=== PATIENT | female | born 1955 | race Caucasian/White ===

== ENCOUNTER → 2017-11-09 11:12 | Outpatient (CLI) | payer OTHER, SELFPAY ==
[2017-11-09 12:12] LABS: Cholesterol 191 mg/dL (140-199); Glucose 99 mg/dL (80-110); HDL Cholesterol 60 mg/dL (40-60); LDL Cholesterol Calculated 110 mg/dL (<100); Triglycerides 103 mg/dL (35-150)
[2017-11-09 12:43] LABS: TSH w/ Reflex to FT4 1.46 uIU/mL (0.47-4.68)
== END ==
PROVIDERS: PCP Internal Medicine; Visit Provider Family Medicine
DX: M81.0 Age-related osteoporosis without current pathological fracture (principal); Z78.0 Asymptomatic menopausal state; R63.5 Abnormal weight gain; Z13.220 Encounter for screening for lipoid disorders; Z13.1 Encounter for screening for diabetes mellitus
CPT/HCPCS: 36415; 77080; 80061; 82947; 84443

== ENCOUNTER → 2018-01-18 16:53 | Outpatient (CLI) | payer OTHER, SELFPAY ==
[2018-01-18 18:12] LABS: Calcium 9.7 mg/dL (8.4-10.2)
[2018-01-18 18:29] LABS: Vitamin D 25 Hydroxy (D3) 68.9 ng/mL (30.0-100.0)
== END ==
PROVIDERS: Visit Provider Family Medicine
DX: M81.0 Age-related osteoporosis without current pathological fracture (principal)
CPT/HCPCS: 36415; 82306; 82310; 82330

== ENCOUNTER → 2019-02-12 07:52 | Outpatient (CLI) | payer OTHER, SELFPAY ==
--- NOTE | 2019-02-12 07:54 | DI.ECHO.S_ITS ---
[facility] +---------+ : : [address] : : [place] : : : : [id number] : : : : Phone: [phone]---------+ Echocardiogram Report + + :Name: FRANCIA SCHMITT Study Date: 02/12/2019 Height: 66 in : :[facility] Weight: 160 lb : : Gender: Female BSA: 1.8 m2 : :: 1955 Age: 63 yrs BP: 133/70 mmHg: :Reason For Study: TIA : : Performed By: Naseem Hall : :Referring: ANA LUISA REDDY : + + Interpretation Summary The left ventricle is normal in size, wall thickness, and systolic function without any focal wall motion abnormalities with the ejection fraction visually estimated to be 60-65%. Diastolic parameters suggest probable normal left ventricular diastolic function and normal filling pressures. The right ventricle is normal in size and function. Pulmonary artery pressures cannot be estimated because of the lack of a measurable TR jet velocity but the IVC suggests a CVP of around 3 mmHg. The left atrium is moderately dilated while right atrial size is normal. The interatrial septum is intact with no evidence for an atrial septal defect by Doppler or injection of contrast. There is no significant valvular heart disease. The ascending aorta is at the upper limits of normal in size. Procedure: A two-dimensional transthoracic echocardiogram with color flow and Doppler was performed. The study quality was technically good. There is no prior echocardiogram noted for this patient. A saline contrast injection was performed to assess for cardiac shunting. The patient was in normal sinus rhythm during the exam. Left Ventricle: The left ventricle is normal in size, wall thickness, and systolic function without any focal wall motion abnormalities. The ejection fraction is estimated to be 60-65%. Diastolic parameters suggest probable normal left ventricular diastolic function and normal filling pressures. Right Ventricle: The right ventricle is normal in size and function. Atria: The left atrium is moderately dilated. Right atrial size is normal. The interatrial septum is intact with no evidence for an atrial septal defect. There is no Doppler evidence for an atrial septal defect. Injection of contrast documented no interatrial shunt. Mitral Valve: The mitral valve is normal in structure and function. There is trace mitral regurgitation. Aortic Valve: The aortic valve is trileaflet. The aortic valve opens well. The aortic valve is slightly calcified. There is trace aortic regurgitation. Tricuspid Valve: The tricuspid valve is normal in structure and function. There is trace tricuspid regurgitation. Pulmonary artery pressures cannot be estimated because of the lack of a measurable TR jet velocity but the IVC suggests a CVP of around 3 mmHg. Pulmonic Valve: The pulmonic valve is normal in structure and function. There is trace pulmonic regurgitation. There is no significant valvular heart disease. Great Vessels: The aortic root is normal size. The ascending aorta is at the upper limits of normal in size. The pulmonary artery is normal size. The IVC is of normal diameter and collapses greater than 50% with a sniff. This suggests a low right atrial pressure of 3 mm Hg. Pericardium/ Pleura There is no pericardial effusion. There is no pleural effusion. MMode/2D Measurements & Calculations LVIDd: 4.3 cm LVOT diam: 2.1 cm LVIDs: 2.5 cm Ao root diam: 3.0 cm FS: 41.5 % Aortic Jxn: 2.5 cm EPSS: 0.14 cm asc Aorta Diam: 3.3 cm IVSd: 0.86 cm Ao Arch Diam (Prox Trans): 2.6 cm LVPWd: 0.85 cm LV estrada. diameter/BSA (cm/m^2): 2.4 LV sys. diameter/BSA (cm/m^2): 1.4 LA dimension: 3.5 cm RA long axis: 4.7 cm LA A2 area: 23.3 cm2 RA area: 17.2 cm2 LA A4 area: 22.0 cm2 RA vol: 53.0 ml LA length (vol): 5.4 cm RA : 29.1 ml/m2 LA vol: 80.8 ml IVC diam: 1.4 cm LA vol index: 44.4 ml/m2 RVD1 (basal): 3.6 cm RVD2 (mid): 3.3 cm Doppler Measurements & Calculations Ao V2 max: 165.1 cm/sec LVOT Max Zack: 126.2 cm/sec Ao V2 mean: 111.4 cm/sec LV V1 max P.4 mmHg Ao max P.9 mmHg LV V1 VTI: 28.5 cm Ao mean P.6 mmHg GUS(I,D): 2.8 cm2 Ao V2 VTI: 34.0 cm GUS(V,D): 2.5 cm2 sev ratio: 0.84 GUS indexed to BSA (cm^2/m^2): 1.5 MV E max zack: 83.4 cm/sec TR max zack: 228.7 cm/sec MV A max zack: 72.1 cm/sec TR max P.9 mmHg MV E/A: 1.2 PA V2 max: 99.4 cm/sec Med Peak E' Zack: 8.5 cm/sec PA V2 mean: 76.5 cm/sec E/E' med: 9.9 PA mean P.5 mmHg Lat Peak E' Zack: 12.2 cm/sec PA pr(Accel): 16.6 mmHg E/E' lat: 6.8 PA Accel Time: 0.16 sec E/e' average: 8.3 MV dec time: 0.18 sec SV(LVOT): 94.3 ml Reading Physician:PARVEEN
--- NOTE | 2019-02-12 07:54 | DI.MRI.S_ITS ---
PROCEDURE: MR STROKE Pre- and post-contrast brain MRI, non-contrast brain MR angiogram, pre- and postcontrast neck MR angiogram INDICATIONS: TIA symptoms TECHNIQUE: Brain: Noncontrast axial T1 spin echo, axial T2 fast spin echo, sagittal and axial FLAIR, coronal T2 fast spin echo, axial gradient echo, axial diffusion and ADC through the brain. After the administration of contrast, axial 3D VIBE of the cranial vasculature and brain. Brain MRA: Non-contrast 3-D time of flight MR angiogram, with multiple xwuajps-zlrfuarug-dxfqrerdcc (MIP) reformats performed. Neck MRA: Axial and sagittal TruFISP through the neck. Coronal dynamic MR angiogram during administration of contrast in the arterial and venous phases, with 3-dimenstional yyxfwnf-ppsecyuwz-iamqixvjqi (MIP) reformats constructed from subtraction images. COMPARISON: [facility], CT, CT HEAD TPA, 01/21/2019, 7:42. [facility], CT, HEAD AND NECK ANGIO, 08/26/2016, 10:22. FINDINGS: Image quality: Excellent. BRAIN: CSF spaces: Ventricles are normal in size and shape. Basal cisterns are patent. No extra-axial fluid collections. Brain: No intracranial bleeds or mass effects. Meng-white matter interface is normal. Diffusion weighted images show no acute ischemic insults. Brainstem appears normal. Normal intravascular flow voids are present. No abnormal intracranial enhancement. Skull and face: Calvarial marrow signal is normal. Orbits appear normal. Sinuses: Sinuses and mastoids are clear. BRAIN MR ANGIOGRAM: Anterior circulation: Intracranial internal carotid arteries are normal in size and enhancement. The flow within the paired anterior cerebral arteries is normal and symmetric. The flow within the middle cerebral arteries is normal and symmetric. The anterior communicating artery is seen. No stenoses, occlusions, or aneurysms. Posterior circulation: The visualized portions of the vertebral arteries demonstrate normal caliber, and join to form a normal appearing basilar artery. Near origin of the right posterior cerebral artery. The flow within the posterior cerebral arteries is normal and symmetric. No stenoses, occlusions, or aneurysms. NECK MR ANGIOGRAM: Carotids: Great vessels demonstrate a conventional anatomy as they arise from the aortic arch. The origins of the common carotid arteries appear patent. The calibers and courses of both common carotid arteries are normal. The bifurcation regions appear normal bilaterally. The internal carotid arteries demonstrate normal course and caliber. Posterior circulation: The origins of the vertebral arteries appear patent. More superior portions of both vertebral arteries demonstrate normal course and caliber, and join to form a normal appearing basilar artery. Miscellaneous: Subclavian arteries appear patent. Pre-contrast images through the neck show no soft tissue abnormalities. IMPRESSION: BRAIN MRI: Negative brain MRI. No recent infarct. BRAIN MR ANGIOGRAM: Negative cerebral MR angiography. NECK MR ANGIOGRAM: 1. No internal carotid artery stenosis bilaterally. 2. Patent bilateral vertebral arteries. Dictated by: Obinna Segal M.D. on 02/12/2019 at 10:31 Approved by: Obinna Segal M.D. on 02/12/2019 at 10:37
== END ==
PROVIDERS: PCP Family Medicine; Visit Provider Family Medicine
DX: G45.9 Transient cerebral ischemic attack, unspecified (principal); Q21.1 Atrial septal defect
CPT/HCPCS: 70548; 70553; 93306

== ENCOUNTER → 2019-04-05 13:33 | Outpatient (CLI) | payer OTHER, SELFPAY ==
--- NOTE | 2019-04-05 | DI.MG.S_ITS ---
BILATERAL DIGITAL SCREENING MAMMOGRAM 3D/2D WITH CAD: 04/05/2019 CLINICAL: Routine screening. Family history of breast cancer. Comparison is made to exams dated: 06/26/2017 mammogram - [facility] and 10/07/2012 mammogram - [facility]. There are scattered fibroglandular elements in both breasts. Current study was also evaluated with a Computer Aided Detection (CAD) system. There are benign calcifications in both breasts. There also are benign post operative findings in both breasts. No significant masses, calcifications, or other findings are seen in either breast. IMPRESSION: There is no mammographic evidence of malignancy. A 1 year screening mammogram is recommended. This exam was interpreted at Station ID: [id number]. NOTE: For mammograms, a report in lay terms will be sent to the patient. Approximately 15% of breast malignancies will not be visualized mammographically. In the management of a palpable breast mass, a negative mammogram must not discourage biopsy of a clinically suspicious lesion. Electronically Signed By: Preet rivera/chaim:04/07/2019 09:45:04 letter sent: Normal Exam ACR BI-RADS Category 2: Benign Finding(s) 3342F
== END ==
PROVIDERS: PCP Family Medicine; Visit Provider Family Medicine
DX: Z12.31 Encounter for screening mammogram for malignant neoplasm of breast (principal); Z80.3 Family history of malignant neoplasm of breast
CPT/HCPCS: 77063; 77067

== ENCOUNTER → 2019-06-26 07:36 | Outpatient (CLI) | payer OTHER, SELFPAY ==
--- NOTE | 2019-06-26 07:37 | DI.US.S_ITS ---
PROCEDURE: US RENAL COMPLETE INDICATIONS: RIGHT FLANK PAIN TECHNIQUE: Real-time scanning was performed of the kidneys and bladder, with image documentation. COMPARISON: [facility], CT, ANGIOGRAPHY ABDOMEN AND PELVIS, 02/05/2016, 19:40. FINDINGS: Kidneys: Kidneys are normal in size. Right kidney measures 11.3 cm long; left kidney measures 10.1 cm long. Right renal cortical thickness is 1.1 cm; left renal cortical thickness is 1.4 cm. Renal cortical echotexture is normal. No hydronephrosis or nephrolithiasis. No suspicious solid mass lesions. Bladder: Pre-void bladder volume is 261 mL. 0 cc postvoid residual. Pre-void images demonstrate no intraluminal masses or stones. On pre-void images, left ureteral jets are noted with color Doppler interrogation. (Of note, ureteral jets may not be detectable in up to 25% of cases due to insufficient differences in specific gravity between ureteral and bladder urine). Right ureteral jet not seen. Miscellaneous: No free pelvic fluid. IMPRESSION: 1. No hydronephrosis. 2. No postvoid residual. Consider CT KUB if occult kidney stone is suspected. Dictated by: Modesto Valderrama M.D. on 06/26/2019 at 11:14 Approved by: Modesto Valderrama M.D. on 06/26/2019 at 11:16
== END ==
PROVIDERS: PCP Family Medicine; Referring Provider Family Medicine; Visit Provider Family Medicine
DX: R10.9 Unspecified abdominal pain (principal)
CPT/HCPCS: 76770

== ENCOUNTER → 2019-08-12 13:37 | Outpatient (CLI) | payer OTHER, SELFPAY ==
[2019-08-14 06:14] LABS: COVID19 Sendout Not Detected (Not Detected)
== END ==
PROVIDERS: PCP Family Medicine; Visit Provider Registered Nurse
DX: Z11.9 Encounter for screening for infectious and parasitic diseases, unspecified (principal)
CPT/HCPCS: 87635

== ENCOUNTER → 2020-03-01 06:42 | Outpatient (CLI) | payer OTHER, SELFPAY ==
[2020-03-01 08:54] LABS: Add Manual Diff / Slide Review NO; Basophils Absolute Auto 0 /uL (0-100); Basophils Percent Auto 0.7 % (0-2); Eosinophils Absolute Auto 300 /uL (0-450); Eosinophils Percent Auto 6.1 % (2-4); Hematocrit 39.7 % (36-46); Hemoglobin 13.5 g/dL (12.0-16.0); Lymphocytes Absolute Auto 2100 /uL (1100-4500); Lymphocytes Percent Auto 38.8 % (25-40); Mean Corpuscular Hemoglobin 31.7 PG (26-34); Mean Corpuscular Volume 93.2 fL (80-100); Monocytes Absolute Auto 600 /uL (0-900); Neutrophils Absolute Auto 2300 /uL (1500-7000); Neutrophils Percent Auto 43.4 % (50-75); Platelet Count 252 X10^3/uL (150-400); Red Blood Cell Count 4.25 X10^6/uL (4.0-5.2); Red Cell Distribution Width 12.6 % (11.6-14.8); White Blood Cell Count 5.3 X10^3/uL (4.5-11.0)
[2020-03-01 09:19] LABS: Alanine Aminotransferase 20 IU/L (<35); Albumin 4.1 g/dL (3.5-5.0); Albumin Globulin Ratio 1.1 (1.0-2.8); Alkaline Phosphatase 84 U/L (38-126); Aspartate Aminotransferase 28 IU/L (14-36); BUN Creatinine Ratio 19.5 (6-22); Bilirubin Total 0.7 mg/dL (0.2-1.3); Blood Urea Nitrogen 16 mg/dL (7-17); Calcium 9.2 mg/dL (8.4-10.2); Carbon Dioxide 29 mmol/L (22-32); Chloride 105 mmol/L (98-107); Cholesterol 193 mg/dL (140-199); Estimated Glomerular Filt Rate > 60.0 mL/min (>60); Globulin 3.7 g/dL (1.7-4.1); Glucose 105 mg/dL (80-110); HDL Cholesterol 57 mg/dL (40-60); HEMOLYSIS < 15 (0-50); LDL Cholesterol Calculated 113 mg/dL (<100); Potassium 4.2 mmol/L (3.4-5.1); Sodium 138 mmol/L (137-145); Total Protein 7.8 g/dL (6.3-8.2); Triglycerides 116 mg/dL (35-150)
[2020-03-01 09:45] LABS: Creatinine Urine Random 12.3 mg/dL
[2020-03-01 09:55] LABS: Microalbumin Urine Random < 0.6 mg/dL (0-1.6)
[2020-03-01 10:15] LABS: TSH w/ Reflex to FT4 1.88 uIU/mL (0.47-4.68)
== END ==
PROVIDERS: PCP Family Medicine; Referring Provider Family Medicine; Visit Provider Family Medicine
DX: I10 Essential (primary) hypertension (principal)
CPT/HCPCS: 36415; 80053; 80061; 82043; 82570; 84443; 85025

== ENCOUNTER → 2021-04-01 16:18 | Outpatient (CLI) | payer OTHER, SELFPAY ==
--- NOTE | 2021-04-01 | DI.MG.S_ITS ---
BILATERAL DIGITAL SCREENING MAMMOGRAM 3D/2D WITH CAD: 04/01/2021 CLINICAL: Routine screening. Family history of breast cancer. Comparison is made to exams dated: 04/05/2019 mammogram, 06/26/2017 ultrasound, and 06/26/2017 mammogram - [facility]. There are scattered fibroglandular elements in both breasts. Current study was also evaluated with a Computer Aided Detection (CAD) system. There are benign calcifications in both breasts. There also are benign post operative findings in both breasts with persistent bilateral free silicone noted. No significant masses, calcifications, or other findings are seen in either breast. There has been no significant interval change. IMPRESSION: BENIGN There is no mammographic evidence of malignancy. Persistent free silicone noted in the bilateral breast. A 1 year screening mammogram is recommended. This exam was interpreted at Station ID: [id number]. NOTE: For mammograms, a report in lay terms will be sent to the patient. Approximately 15% of breast malignancies will not be visualized mammographically. In the management of a palpable breast mass, a negative mammogram must not discourage biopsy of a clinically suspicious lesion. Electronically Signed By: Preet Webb M.D. aty/:04/01/2021 16:44:01 letter sent: Normal Exam ACR BI-RADS Category 2: Benign Finding(s) 3342F
== END ==
PROVIDERS: PCP Family Medicine; Referring Provider Family Medicine; Visit Provider Family Medicine
DX: Z12.31 Encounter for screening mammogram for malignant neoplasm of breast (principal); Z80.3 Family history of malignant neoplasm of breast
CPT/HCPCS: 77063; 77067

== ENCOUNTER → 2021-08-27 07:59 | Outpatient (CLI) | payer OTHER, SELFPAY ==
[2021-08-27 09:22] LABS: Add Manual Diff / Slide Review NO; Basophils Absolute Auto 0 /uL (0-100); Basophils Percent Auto 0.1 % (0-2); Eosinophils Absolute Auto 300 /uL (0-450); Eosinophils Percent Auto 2.7 % (2-4); Hematocrit 38.1 % (36-46); Hemoglobin 13.1 g/dL (12.0-16.0); Lymphocytes Absolute Auto 1900 /uL (1100-4500); Lymphocytes Percent Auto 20.8 % (25-40); Mean Corpuscular HGB Conc 34.5 % (30-36); Mean Corpuscular Hemoglobin 31.5 PG (26-34); Mean Corpuscular Volume 91.2 fL (80-100); Monocytes Absolute Auto 800 /uL (0-900); Monocytes Percent Auto 8.2 % (3-14); Neutrophils Absolute Auto 6300 /uL (1500-7000); Neutrophils Percent Auto 68.2 % (50-75); Platelet Count 219 X10^3/uL (150-400); Red Blood Cell Count 4.17 X10^6/uL (4.0-5.2); Red Cell Distribution Width 12.6 % (11.6-14.8); White Blood Cell Count 9.3 X10^3/uL (4.5-11.0)
[2021-08-27 09:45] LABS: Alanine Aminotransferase 20 IU/L (<35); Albumin 3.9 g/dL (3.5-5.0); Albumin Globulin Ratio 1.3 (1.0-2.8); Alkaline Phosphatase 67 U/L (38-126); Aspartate Aminotransferase 26 IU/L (14-36); Bilirubin Total 0.7 mg/dL (0.2-1.3); Blood Urea Nitrogen 16 mg/dL (7-17); Carbon Dioxide 26 mmol/L (22-32); Chloride 106 mmol/L (98-107); Cholesterol 172 mg/dL (140-199); Estimated Glomerular Filt Rate > 60 mL/min (>60); Globulin 3.1 g/dL (1.7-4.1); Glucose 95 mg/dL (80-110); HDL Cholesterol 55 mg/dL (40-60); HEMOLYSIS < 15 (0-50); LDL Cholesterol Calculated 92 mg/dL (<100); Potassium 4.5 mmol/L (3.4-5.1); Sodium 139 mmol/L (137-145); Triglycerides 127 mg/dL (35-150)
[2021-08-27 09:46] LABS: Creatinine Urine Random 56.7 mg/dL
[2021-08-27 09:50] LABS: Microalbumin Urine Random < 0.6 mg/dL (0-1.6)
[2021-08-27 10:14] LABS: TSH w/ Reflex to FT4 1.13 uIU/mL (0.47-4.68)
== END ==
PROVIDERS: PCP Family Medicine; Referring Provider Family Medicine; Visit Provider Family Medicine
DX: I10 Essential (primary) hypertension (principal); F32.9 Major depressive disorder, single episode, unspecified
CPT/HCPCS: 36415; 80053; 80061; 82043; 82570; 84443; 85025

== ENCOUNTER → 2022-02-22 07:52 | Outpatient (CLI) | payer OTHER, SELFPAY ==
--- NOTE | 2022-02-22 07:54 | DI.ECHO.S_ITS ---
[facility]---------+ [facility] +---------+ : : [address] : [place] : : : : [id number] : : : : Phone: [phone] : : [phone] +---------+ Echocardiogram Report + + :Name: FRANCIA SCHMITT Study Date: 02/22/2022 Height: 66 in : :[facility] ReadingLocation: Weight: 169 lb : : Gender: Female BSA: 1.9 m2 : :: 1955 Age: 66 yrs BP: 150/101 mmHg: :Reason For Study: CHEST PAIN : :Ordering Physician: BARRY, : :ANA LUISA Performed By: Olga Light : :Referring: ANA LUISA REDDY : + + Interpretation Summary The ejection fraction is estimated to be 50-55%. There is mild tricuspid regurgitation. There is trace aortic regurgitation. There is trace mitral regurgitation. There is no pericardial effusion. Procedure: A two-dimensional transthoracic echocardiogram with color flow and Doppler was performed. The study quality was technically adequate. Comparison is made with the echocardiogram of 02/12/2019. The patient was in sinus rhythm with heart rates between 62-73 bpm during the exam. Left Ventricle: The left ventricle is normal in size and wall thickness. The ejection fraction is estimated to be 50-55%. Left ventricular wall motion is normal. Right Ventricle: The right ventricle is normal in size and function. Atria: The left atrial size is normal. Right atrial size is normal. There is no Doppler evidence for an interatrial shunt. Mitral Valve: The mitral valve is normal in structure and function. There is trace mitral regurgitation. Aortic Valve: The aortic valve is trileaflet. The aortic valve opens well. There is no aortic valve stenosis. There is trace aortic regurgitation. Tricuspid Valve: The tricuspid valve is normal in structure and function. There is mild tricuspid regurgitation. The right ventricular systolic pressure is estimated to be at least 23 mmHg based on an estimated right atrial pressure of 3 mm Hg. Pulmonic Valve: The pulmonic valve leaflets are thin and pliable; valve motion is normal. There is mild pulmonic regurgitation. Great Vessels: The aortic root is normal size. The dimensions of the ascending aorta are normal. The IVC is of normal diameter and collapses greater than 50% with a sniff. This suggests a low right atrial pressure of 3 mm Hg. Pericardium/ Pleura There is no pericardial effusion. There is no pleural effusion. MMode/2D Measurements & Calculations LVIDd: 4.4 cm LVOT diam: 2.0 cm LVIDs: 3.2 cm Ao root diam: 3.3 cm FS: 27.9 % asc Aorta Diam: 3.2 cm EPSS: 0.76 cm Ao Arch Diam (Prox Trans): 3.0 cm IVSd: 0.84 cm LVPWd: 0.79 cm LV estrada. diameter/BSA (cm/m^2): 2.4 LV sys. diameter/BSA (cm/m^2): 1.7 LA A2 area: 18.6 cm2 RA long axis: 4.5 cm LA A4 area: 14.0 cm2 RA area: 14.5 cm2 LA length (vol): 4.4 cm RA vol: 39.9 ml LA vol: 49.7 ml RA : 21.4 ml/m2 LA vol index: 26.7 ml/m2 IVC diam: 0.95 cm RVD1 (basal): 3.1 cm RVD2 (mid): 3.0 cm TAPSE: 2.0 cm Doppler Measurements & Calculations Ao V2 max: 126.6 cm/sec LVOT Max Zack: 124.2 cm/sec Ao V2 mean: 91.1 cm/sec LV V1 max P.2 mmHg Ao max P.4 mmHg LV V1 VTI: 26.5 cm Ao mean P.6 mmHg GUS(I,D): 3.2 cm2 Ao V2 VTI: 26.0 cm GUS(V,D): 3.1 cm2 sev ratio: 1.0 GUS indexed to BSA (cm^2/m^2): 1.7 MV E max zack: 63.3 cm/sec TR max zack: 225.5 cm/sec MV A max zack: 89.7 cm/sec TR max P.3 mmHg MV E/A: 0.71 PA V2 max: 89.9 cm/sec Med Peak E' Zack: 6.4 cm/sec PA V2 mean: 58.9 cm/sec E/E' med: 9.9 PA mean P.6 mmHg Lat Peak E' Zack: 5.1 cm/sec PA pr(Accel): 29.3 mmHg E/E' lat: 12.3 E/e' average: 11.1 MV dec time: 0.25 sec SV(LVOT): 83.2 ml Reading Physician:12:27 PM
== END ==
PROVIDERS: PCP Family Medicine; Referring Provider Family Medicine; Visit Provider Family Medicine
DX: I07.1 Rheumatic tricuspid insufficiency (principal); R07.9 Chest pain, unspecified
CPT/HCPCS: 93306

== ENCOUNTER → 2022-04-03 07:37 | Outpatient (CLI) | payer OTHER, SELFPAY ==
--- NOTE | 2022-04-03 | DI.MG.S_ITS ---
BILATERAL DIGITAL SCREENING MAMMOGRAM 3D/2D WITH CAD: 04/03/2022 CLINICAL: Routine screening. Family history of breast cancer. Comparison is made to exams dated: 04/01/2021 mammogram, 04/05/2019 mammogram, 06/26/2017 mammogram - [facility], and 10/07/2012 mammogram - [facility]. There are scattered areas of fibroglandular density in both breasts (category b / 25%-50% glandular tissue). Current study was also evaluated with a Computer Aided Detection (CAD) system. There are benign post operative findings in both breasts. No significant masses, calcifications, or other findings are seen in either breast. There has been no significant interval change. IMPRESSION: BENIGN There is no mammographic evidence of malignancy. A 1 year screening mammogram is recommended. Based on the Tyrer Cuzick model (a risk assessment model) the patient's lifetime risk is 3.7% and her 10 year risk is 2.0%. According to the ACR, ACS, and NCCN guidelines, an annual breast MRI exam along with mammogram is recommended if the patient's lifetime risk is 20% or greater. This exam was interpreted at Station ID: [id number]. NOTE: For mammograms, a report in lay terms will be sent to the patient. Approximately 15% of breast malignancies will not be visualized mammographically. In the management of a palpable breast mass, a negative mammogram must not discourage biopsy of a clinically suspicious lesion. Electronically Signed By: Modesto sánchez/chaim:04/03/2022 09:07:20 letter sent: Normal Exam ACR BI-RADS Category 2: Benign Finding(s) 3342F
[2022-04-03 08:07] LABS: COVID19 -Nasal RAPID Negative (Negative)
--- NOTE | 2022-04-04 08:50 | DI.NM.S_ITS ---
DATE OF SERVICE: 04/03/2022 PROCEDURE: Exercise stress test. INDICATION: Chest discomfort. CARDIAC STRESS: The patient underwent exercise stress test under the supervision of an attending staff. The patient walked on Kervin protocol for 6 minutes and 01 seconds, achieved maximum heart rate of 152, which was 100 percent of target heart rate. Baseline blood pressure 145/70 mmHg. Peak blood pressure 178/85 mmHg. Achieved 7 METs of workload. JAZMIN is 0 percent. Baseline rhythm was sinus. During stress, no convincing ischemic changes seen, however the patient developed right bundle branch block, which persisted even 5 minutes into the recovery. Rare PVCs. No chest pain or anginal symptoms. CONCLUSION: Exercise stress test is negative for inducible ischemia. However, the patient developed right bundle branch block during exercise, which persisted even 5 minutes in recovery. Likely rate related. Normal blood pressure response. Achieved 7 metabolic equivalents of workload and functional aerobic impairment 0 percent. Diminished exercise tolerance. No anginal symptoms. Rare premature ventricular contractions. Correlate clinically. Gilma Cardenas - KATHIE/leonides/bernard doc#: [id number]/job#: [id number] dd: 04/03/2022 16:54:00 dt: 04/03/2022 20:48:00 DICTATING /COPIES TO: Liza Cronin MD COPIES MNE: DIOGO;
== END ==
PROVIDERS: PCP Family Medicine; Referring Provider Family Medicine; Visit Provider Family Medicine
DX: R07.89 Other chest pain (principal); Z20.822 Contact with and (suspected) exposure to COVID-19; Z12.31 Encounter for screening mammogram for malignant neoplasm of breast; Z80.3 Family history of malignant neoplasm of breast
CPT/HCPCS: 77063; 77067; 87635; 93017

== ENCOUNTER → 2022-07-25 07:03 | Outpatient (CLI) | payer OTHER, SELFPAY ==
[2022-07-25 08:47] LABS: Alanine Aminotransferase 25 IU/L (<35); Albumin 4.1 g/dL (3.5-5.0); Albumin Globulin Ratio 1.1 (1.0-2.8); Alkaline Phosphatase 86 U/L (38-126); Aspartate Aminotransferase 32 IU/L (14-36); BUN Creatinine Ratio 22.2 (6-22); Bilirubin Total 0.5 mg/dL (0.2-1.3); Blood Urea Nitrogen 18 mg/dL (7-17); Calcium 8.9 mg/dL (8.4-10.2); Carbon Dioxide 24 mmol/L (22-32); Chloride 106 mmol/L (98-107); Cholesterol 213 mg/dL (140-199); Estimated Glomerular Filt Rate > 60 mL/min (>60); Globulin 3.7 g/dL (1.7-4.1); Glucose 97 mg/dL (80-110); HDL Cholesterol 61 mg/dL (40-60); HEMOLYSIS < 15 (0-50); LDL Cholesterol Calculated 120 mg/dL (<100); Potassium 4.4 mmol/L (3.4-5.1); Sodium 138 mmol/L (137-145); Total Protein 7.8 g/dL (6.3-8.2); Triglycerides 158 mg/dL (35-150)
[2022-07-25 09:20] LABS: Creatinine Urine Random 144.4 mg/dL
[2022-07-25 09:24] LABS: Microalbumi Creatinin Ratio Ur 7.6 ug/mg CR (<30); Microalbumin Urine Random 1.1 mg/dL (0-1.6)
== END ==
PROVIDERS: PCP Family Medicine; Referring Provider Family Medicine; Visit Provider Family Medicine
DX: I10 Essential (primary) hypertension (principal)
CPT/HCPCS: 36415; 80053; 80061; 82043; 82570

== ENCOUNTER → 2023-04-04 09:47 | Outpatient (CLI) | payer OTHER, SELFPAY ==
--- NOTE | 2023-04-04 | DI.MG.S_ITS ---
BILATERAL DIGITAL SCREENING MAMMOGRAM 3D/2D WITH CAD: 04/04/2023 CLINICAL: Routine screening. Family history of breast cancer. Comparison is made to exams dated: 04/03/2022 mammogram, 04/01/2021 mammogram, and 04/05/2019 mammogram - [facility]. There are scattered areas of fibroglandular density in both breasts (category b / 25%-50% glandular tissue). Current study was also evaluated with a Computer Aided Detection (CAD) system. There are benign post operative findings in both breasts. Silicone in the right breast. No significant masses, calcifications, or other findings are seen in either breast. There has been no significant interval change. IMPRESSION: BENIGN There is no mammographic evidence of malignancy. A 1 year screening mammogram is recommended. Based on the Tyrer Cuzick model (a risk assessment model) the patient's lifetime risk is 3.5% and her 10 year risk is 2.1%. According to the ACR, ACS, and NCCN guidelines, an annual breast MRI exam along with mammogram is recommended if the patient's lifetime risk is 20% or greater. This exam was interpreted at Station ID: [id number]. NOTE: For mammograms, a report in lay terms will be sent to the patient. Approximately 15% of breast malignancies will not be visualized mammographically. In the management of a palpable breast mass, a negative mammogram must not discourage biopsy of a clinically suspicious lesion. Electronically Signed By: Modesto Valderrama M.D. slc/:04/04/2023 16:08:26 letter sent: Normal Exam ACR BI-RADS Category 2: Benign Finding(s) 3342F
== END ==
PROVIDERS: PCP Family Medicine; Referring Provider Family Medicine; Visit Provider Family Medicine
DX: Z12.31 Encounter for screening mammogram for malignant neoplasm of breast (principal); Z80.3 Family history of malignant neoplasm of breast
CPT/HCPCS: 77063; 77067

== ENCOUNTER → 2023-07-24 07:03 | Outpatient (CLI) | payer OTHER, SELFPAY ==
[2023-07-24 08:18] LABS: Alanine Aminotransferase 17 IU/L (<35); Albumin 3.9 g/dL (3.5-5.0); Albumin Globulin Ratio 1.3 (1.0-2.8); Alkaline Phosphatase 62 U/L (38-126); Aspartate Aminotransferase 25 IU/L (14-36); Bilirubin Total 0.5 mg/dL (0.2-1.3); Blood Urea Nitrogen 17 mg/dL (7-17); Calcium 9.4 mg/dL (8.4-10.2); Carbon Dioxide 27 mmol/L (22-32); Chloride 108 mmol/L (98-107); Cholesterol 199 mg/dL (140-199); Estimated Glomerular Filt Rate > 60 mL/min (>60); Glucose 92 mg/dL (80-110); HDL Cholesterol 55 mg/dL (40-60); HEMOLYSIS < 15 (0-50); LDL Cholesterol Calculated 113 mg/dL (<100); Potassium 4.4 mmol/L (3.4-5.1); Sodium 140 mmol/L (137-145); Total Protein 6.9 g/dL (6.3-8.2); Triglycerides 153 mg/dL (35-150)
[2023-07-24 11:30] LABS: Creatinine Urine Random 46.6 mg/dL; Microalbumin Urine Random < 0.6 mg/dL (0-1.6)
== END ==
PROVIDERS: PCP Family Medicine; Referring Provider Family Medicine; Visit Provider Family Medicine
DX: I10 Essential (primary) hypertension (principal)
CPT/HCPCS: 36415; 80053; 80061; 82043; 82570

== ENCOUNTER → 2023-07-25 09:30 | Outpatient (CLI) | payer OTHER, SELFPAY ==
--- NOTE | 2023-07-25 10:00 | DI.RAD.S_ITS ---
Bone Density Report Name: FRANCIA SCHMITT Age: 68 Sex: Female Ethnicity: White Date of : 1955 Indication: osteopenia; Referring Provider: ANA LUISA REDDY Study: Bone densitometry was performed. Exam Date: July 25, 2023 Accession number: [id number] Bone Density: Region BMD T-score Z-score Classification AP Spine(L1-L4) 0.767 -2.5 -0.4 Osteoporosis Femoral Neck (Left) 0.515 -3.0 -1.2 Osteoporosis Total Hip (Left) 0.720 -1.8 -0.3 Osteopenia Femoral Neck (Right) 0.539 -2.8 -1.0 Osteoporosis Total Hip (Right) 0.734 -1.7 -0.2 Osteopenia Total Hip Mean 0.727 -1.8 -0.3 Osteopenia World Health Organization criteria for BMD impression classify patients as: Normal (T-score at or above -1.0), Osteopenia (T-score between -1.0 and -2.5), or Osteoporosis (T-score at or below -2.5). 10-year Fracture Risk: FRAX not reported because: Some T-score for Spine Total or Hip Total or Femoral Neck at or below -2.5 Previous Exams: -- Region Exam Age BMD T-score BMD Change BMD Change Date g/cm2 vs Baseline vs Previous -- AP Spine (L1-L4) 07/25/2023 68 0.767 -2.5 -0.058 (-7.0%)# -0.058 (-7.0%)# 11/09/2017 62 0.825 -2.0 Total Hip(Left) 07/25/2023 68 0.720 -1.8 0.024 (3.5%)# 0.024 (3.5%)# 11/09/2017 62 0.696 -2.0 Total Hip(Right) 07/25/2023 68 0.734 -1.7 0.066 (9.9%)# 0.066 (9.9%)# 11/09/2017 62 0.668 -2.2 -- *Denotes significance at 95% confidence level, LSC for AP Spine = 0.022 g/cm2, LSC for Total Hip = 0.027 g/cm2 # Denotes dissimilar scan types or analysis methods Impression: The patient has osteoporosis, based on the Left Femoral Neck T-score. No significant bone loss was observed. Discussion: INCREASED RISK OF FRACTURE. BONE DENSITY IS UNDESIRABLY LOW AT ONE OR MORE SKELETAL SITES, CONSISTENT WITH POSTMENOPAUSAL OSTEOPOROSIS. This patient's lowest T-score meets the World Health Organization's (WHO) criteria for osteoporosis at one or more sites (T-score -2.5 or below). In untreated patients, the risk of osteoporotic fracture increases approximately two-fold for each 1.0 SD decrease in T-score. Low bone density is not the only risk factor for fracture; also consider factors such as patient's age, frailty or poor health, risk of falling, risk of injury, previous osteoporotic fracture, family history of osteoporosis, cigarette smoking, low body weight, etc. Not everyone with low bone mineral density has osteoporosis; osteomalacia and other metabolic bone disorders should also be considered. Patients who have osteoporosis should be evaluated for specific diseases and conditions (secondary causes) that may cause or contribute to bone loss. The [place] Association [employer] Endocrinologists (AACE) and National Osteoporosis Foundation (NOF) recommend pharmacologic intervention for all postmenopausal women whose T-score is in this range. The patient should follow a healthful lifestyle (good nutrition with adequate calcium and vitamin D, and appropriate weight-bearing exercise). Follow-Up: Consider a repeat BMD and Vertebral Fracture Assessment (VFA) exam in 2 years or sooner if medically necessary, to reassess this patient's status. Reported by: KAIN SANCHEZ M.D. on 07/25/2023 10:01:00 AM.
== END ==
PROVIDERS: PCP Family Medicine; Referring Provider Family Medicine; Visit Provider Family Medicine
DX: M81.0 Age-related osteoporosis without current pathological fracture (principal)
CPT/HCPCS: 77080

== ENCOUNTER 2023-09-18 07:08 | Day surgery (SDC) | payer OTHER, SELFPAY ==
[2023-09-18] VITALS (12 sets, daily range): BP systolic 55–155; BP diastolic 32–94; PULSE 57–122; RESP 12–30; TEMP 36.6–37.2; O2SAT 96–100
--- NOTE | 2023-09-18 | DI.RAD.S_ITS ---
PROCEDURE: XR ACUTE ABDOMEN SERIES INDICATIONS: abd pain post op TECHNIQUE: One view chest and two views of the abdomen were acquired. COMPARISON: None. FINDINGS: Surgical changes and devices: None. Chest: Lungs are clear. Heart size is normal. No pleural effusions. No pneumoperitoneum. Abdomen: Bowel gas pattern is normal. No suspicious calcifications. Visualized solid organ contours appear normal. Bones: No suspicious bony lesions. IMPRESSION: No acute abnormality. Dictated by: Tara Brink MD, PhD on 09/18/2023 at 9:47 Approved by: Tara Brink MD, PhD on 09/18/2023 at 9:48
--- NOTE | 2023-09-18 | PATH_ITS ---
[facility] Accession Number: [id number] No. of containers..01 Tissue . 01 Material submitted: . colon - ASCENDING POLYP X 2 . 01 Diagnosis: ASCENDING POLYP X 2: Sessile serrated adenoma. Tubular adenoma. STO 09/24/20231318 Local . 01 Electronically signed: . Amandeep Martínez MD, Pathologist NPI- [id number] . 01 Gross description: . ASCENDING POLYP X 2: Received in formalin are 2 fragment(s) of bird, soft tissue measuring 0.3 x 0.2 x 0.2 cm to 0.4 x 0.2 x 0.2 cm submitted entirely in 1 cassette(s) /KELSEY 09/24/20231318 Local . 01 Pathologist provided ICD-10: D12.2 . 01 CPT . 792684 Specimen Comment: A courtesy copy of this report has been sent to [phone] Performed at: [address] [facility] [address], [place], [place] [id number] MD Amandeep Martínez MD Phone: [phone]
[2023-09-18] MEDS: LACTATED RINGERS 1,000 ML 42 ML IV ×3 (07:31→09:18)
--- NOTE | 2023-09-18 08:04 | PM.HP.1 ---
History of Present Illness History of Present Illness Date Patient Seen: 09/18/23 Time Patient Seen: 08:04 Chief complaint: SDC Narrative: 68-year-old woman here for screening colonoscopy. Last colonoscopy 11 years ago normal. No family history of intestinal malignancy in first-degree relatives. constipation over the past 1 year new for her [facility] Medical History Osteoporosis Compression fracture Migraines Fractures Mumps (~1961) Measles (~1960) Chicken pox (~1962) Vertigo (~2016) Kidney stones PFO (patent foramen ovale) Surgical History History of section History of live History of multiple miscarriages History of hysterectomy (~06/1991) Status post silicone breast implant History of tonsillectomy and adenoidectomy (~1970) Family History Father Prostate cancer Migraines Kidney stones Mother Congestive heart failure Breast cancer Hypertension Heart disease Brother MGUS (monoclonal gammopathy of unknown significance) Brother Migraines Sister Migraines Sister Migraines Sister Anxiety Grandfather Heart disease Grandmother Heart disease Grandfather Stroke Grandmother No problems noted. 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[employer]) Smoking Status: Never smoker second hand exposure: No alcohol intake: current substance use type: does not use Meds Home Medications and Allergies Home Medications Medication Instructions Recorded Confirmed Type VITAMIN D (Vitamin D3) 1,000 units PO QDAY ##0 08/26/16 09/18/23 History sumatriptan succinate 100 mg 100 mg PO ONCE #30 tabs 07/11/23 09/18/23 Rx tablet (Imitrex) sodium,potassium,mag sulfates 17.5 See Rx Instructions PO .COMPLEX 08/20/23 09/18/23 Rx gram-3.13 gram-1.6 gram oral soln #354 mL (Suprep Bowel Prep Kit) Allergies Allergy/AdvReac Type Severity Reaction Status Date / Time codeine [CODEINE] Allergy Unknown Verified 09/18/23 07:49 [id number] Reductase AdvReac Severe Muscle Pain Verified 09/18/23 07:49 Inhibitor acetaminophen [From Vicodin] AdvReac Mild nausea Verified 09/18/23 07:49 hydrocodone [From Vicodin] AdvReac Mild nausea Verified 09/18/23 07:49 tramadol AdvReac Mild flu like Verified 09/18/23 07:49 symptoms Exam Vital Signs (past 8 hours): - 09/18/23 07:39 Temperature 97.8 F Pulse Rate 88 Respiratory Rate 18 Blood Pressure 155/94 H Pulse Oximetry 98 Oxygen Delivery Method Room Air Oxygen Delivery Method Room Air Narrative Exam Narrative: General adult woman alert oriented no acute distress Chest nonlabored respiration Extremities warm well perfused Assessment & Plan Assessment & Plan narrative: The patient requires colorectal screening and colonoscopy is recommended. Technical details were discussed. Risks, benefits, alternatives explained. Risks including but not limited to myocardial infarction, aspiration, bleeding, pain, missed lesion, incomplete examination, need for further radiographic studies, intestinal injury, and need for major abdominal surgery were discussed. All questions were answered to their satisfaction, and they are in agreement with this plan.
--- NOTE | 2023-09-18 08:45 | P.OP.COLON_ITS ---
Operative Date/Time/Diagnoses Date of procedure: 09/18/23 Time of procedure: 08:45 Pre-op diagnosis: Colorectal screening Post-op diagnosis: other (Colonic polyps x2) Procedure & Clinicians Study performed: Screening colonoscopy Same procedure as scheduled: Yes Indications: Colorectal screening Surgeon: Perico Lacey Procedure Notes Procedure in detail: The history and physical was performed/updated and the patient is ASA class is 2. The procedure was discussed in detail with the patient. Potential risks complications including infection, bleeding, missed diagnosis, perforation, need for surgery, and were explained. Their questions were answered and informed consent was obtained. Patient was brought to the procedure room and placed standard monitoring equipment. The patient's vital signs were monitored continuously throughout the entire procedure. Prior to starting time-out was performed. The patient was placed in the left lateral recumbent position. Procedural sedation was administered by anesthesia. Examination began with a thorough inspection of the perianal area there was no evidence of fissures, fistulae, external hemorrhoids or cutaneous malignancy. The colonoscopy scope was then placed into the anal c anal and was advanced to the cecum, which was identified by the ileocecal valve, the appendiceal orifice and the confluence of the taenia. The scope was then slowly withdrawn examining colon thoroughly in all directions, irrigating it of any residual stool. The scope was retroflexed within the rectum The patient tolerated the procedure well. They will be discharged once criteria are met. The prep was of good/excellent quality. The withdrawl time was 7 minutes. FINDINGS * Ascending colon-polyps 3 mm x 2 removed with biopsy forceps. * Descending colon mild diverticulosis Specimen(s): other (Ascending colon polyps x2) Impression: Colonic polyps x2 Diverticulosis Post-procedure Recommendations: High fiber diet Plan for aftercare: Follow-up is dependent on pathology findings likely 5 years. Disposition: same day surgery
[2023-09-18] MEDS: ONDANSETRON 4 MG/2 ML INJ IV (09:16)
== END 2023-09-18 10:18 | disposition home or self-care (01) ==
PROVIDERS: PCP Family Medicine; Referring Provider Surgery; Visit Provider Surgery
PROC: 0DJD8ZZ Inspection of Lower Intestinal Tract, Via Natural or Artificial Opening Endoscopic (ICD-10-PCS; CPT 45378; principal; 2023-09-18 08:15)
DX: Z12.11 Encounter for screening for malignant neoplasm of colon (principal); K57.30 Diverticulosis of large intestine without perforation or abscess without bleeding; D12.2 Benign neoplasm of ascending colon
CPT/HCPCS: 45380; 74022; J2405; J2704

== ENCOUNTER → 2024-11-03 09:36 | Outpatient (CLI) | payer OTHER, SELFPAY ==
--- NOTE | 2024-11-03 09:37 | DI.RAD.S_ITS ---
PROCEDURE: XR FOREARM RT 2V INDICATIONS: forearm pain, distal TECHNIQUE: 2 views of the forearm were acquired. COMPARISON: None. FINDINGS: Bones: No fractures or dislocations. No suspicious bony lesions. Soft tissues: No suspicious soft tissue calcifications or masses. IMPRESSION: No acute bony abnormality. Approved by: Sanket Nelson M.D. on 11/04/2024 at 10:19
== END ==
PROVIDERS: PCP Family Medicine; Referring Provider Family Medicine; Visit Provider Family Medicine
DX: S50.11XA Contusion of right forearm, initial encounter (principal); X58.XXXA Exposure to other specified factors, initial encounter
CPT/HCPCS: 73090

== ENCOUNTER → 2024-12-19 09:56 | Outpatient (CLI) | payer OTHER, SELFPAY ==
[2024-12-19 11:06] LABS: Alanine Aminotransferase 21 IU/L (<35); Albumin 4.7 g/dL (3.5-5.0); Albumin Globulin Ratio 1.5 (1.0-2.8); Alkaline Phosphatase 72 U/L (38-126); Blood Urea Nitrogen 12 mg/dL (7-17); Calcium 9.6 mg/dL (8.4-10.2); Carbon Dioxide 25 mmol/L (22-32); Chloride 104 mmol/L (98-107); Cholesterol 228 mg/dL (140-199); Estimated Glomerular Filt Rate > 60 mL/min (>60); Globulin 3.1 g/dL (1.7-4.1); Glucose 105 mg/dL (70-99); HDL Cholesterol 94 mg/dL (40-60); HEMOLYSIS < 15 (0-50); Potassium 4.7 mmol/L (3.4-5.1); Sodium 138 mmol/L (137-145); Total Protein 7.8 g/dL (6.3-8.2); Triglycerides 119 mg/dL (35-150)
== END ==
PROVIDERS: PCP Family Medicine; Referring Provider Family Medicine; Visit Provider Family Medicine
DX: I10 Essential (primary) hypertension (principal)
CPT/HCPCS: 36415; 80053; 80061; 82043; 82570

== ENCOUNTER → 2025-04-04 08:54 | Outpatient (CLI) | payer OTHER, SELFPAY ==
--- NOTE | 2025-04-04 08:59 | DI.MG.S_ITS ---
MM screening mammo BI: 04/04/2025. BI-RADS: 2 CLINICAL: 69-year old female for bilateral screening mammogram. Tyrer-Cuzick lifetime risk of 3.5%. Current reported family history of breast cancer: mother. PRIOR EXAMS 04/04/2023, 04/03/2022, 04/01/2021, 04/05/2019. MAMMOGRAPHY TECHNIQUE: 2D and 3D (tomosynthesis) digital mammographic views obtained, with additional images as needed for full coverage. Current study was also evaluated with a Computer Aided Detection (CAD) system. DENSITY B. There are scattered areas of fibroglandular density. MAMMOGRAPHY FINDINGS: Silicone present in the right breast. Bilateral: Benign-appearing post-surgical changes noted. There are no suspicious masses, calcifications, or other findings in the breast. No significant change from comparison. IMPRESSION: * No evidence of malignancy with benign findings. RECOMMENDATIONS Bilateral * Annual screening mammography. OVERALL ASSESSMENT CATEGORY BI-RADS-2: Benign. The [employer] recommends annual screening mammography beginning at age 40 for women with average risk of breast cancer. ELECTRONICALLY SIGNED: Preet Webb M.D. on 04/06/2025 at 07:01:56 PM PT Interpreting Station ID: [id number]
== END ==
LOC: MAMMO 08:57
PROVIDERS: PCP Family Medicine; Referring Provider Family Medicine; Visit Provider Family Medicine
DX: Z12.31 Encounter for screening mammogram for malignant neoplasm of breast (principal); Z80.3 Family history of malignant neoplasm of breast
CPT/HCPCS: 77063; 77067